=== PATIENT | male | born 1985 | race Caucasian/White ===

== ENCOUNTER 2024-05-07 11:35 | Inpatient (IN) | payer OTHER ==
[2024-05-07 12:09] VITALS: BMI 32.5
[2024-05-07] MEDS ORDERED: NALOXONE (NARCAN) HCL 4 MG/0.1 ML SPRAY NS PRN (13:01)
[2024-05-07] MEDS ORDERED: BISMUTH SUBSALICYLATE 524 MG/30 ML PO PRN (13:01)
[2024-05-07] MEDS ORDERED: ONDANSETRON *ODT* 4 MG TABLET SL PRN (13:01)
[2024-05-07] MEDS ORDERED: NALOXONE HCL 0.4 MG/ML VIAL IM PRN (13:01)
[2024-05-07] MEDS ORDERED: MAGNESIUM HYDROX 2400MG/30ML ORAL SUSPENSION 30 ML CUP PO PRN (13:01)
[2024-05-07] MEDS ORDERED: LOPERAMIDE HCL 2 MG CAPSULE PO PRN (13:01)
[2024-05-07] MEDS ORDERED: DICYCLOMINE HCL 10 MG CAPSULE PO PRN (13:01)
[2024-05-07] MEDS ORDERED: IBUPROFEN 400 MG TABLET (FP) PO PRN (13:01)
[2024-05-07] MEDS ORDERED: MAG HYDROX/AL HYDROX/SIMETH 30 ML UNIT-DOSE CUP PO PRN (13:01)
[2024-05-07] MEDS ORDERED: NICOTINE POLACRILEX 4 MG GUM BUC PRN (13:01)
[2024-05-07] MEDS ORDERED: BENZONATATE 200 MG CAPSULE PO PRN (13:01)
[2024-05-07] MEDS ORDERED: POLYETHYLENE GLYCOL (HEALTHYLAX) 3350 17 GM PACKET PO PRN (13:01)
[2024-05-07] MEDS ORDERED: METHOCARBAMOL 500 MG TABLET PO PRN (13:01)
[2024-05-07] MEDS ORDERED: ACETAMINOPHEN 325 MG TABLET (FP) PO PRN (13:01)
[2024-05-07] MEDS ORDERED: BENZOCAINE/MENTHOL (CHLORASEPTIC ) LOZENGE MM PRN (13:01)
[2024-05-07] MEDS ORDERED: guaiFENesin 600 MG TABLET.ER (FP) PO PRN (13:01)
[2024-05-07] MEDS ORDERED: IBUPROFEN 600 MG TABLET (FP) PO PRN (13:01)
[2024-05-07] MEDS ORDERED: methaDONE HCL 10 MG TABLET (FOR DETOX USE ONLY) ONE (13:41)
[2024-05-07] MEDS: methaDONE HCL 10 MG TABLET PO ONE (13:45)
[2024-05-07] MEDS: clonazePAM 0.5 MG ODT TABLETS SL PRN (17:20)
[2024-05-07] MEDS: methaDONE HCL 10 MG TABLET PO PRN (17:22)
[2024-05-07] MEDS: THIAMINE 100 MG TABLET PO SCH (22:21)
[2024-05-07] MEDS: MELATONIN 5 MG TABLETS PO SCH (22:21)
[2024-05-07] MEDS: hydrOXYzine PAMOATE 25 MG CAPSULE (FP) PO PRN (22:23)
[2024-05-08] MEDS: PRENATAL VITAMINS W/ FOLIC ACID TABLET (FP) PO SCH (10:17)
[2024-05-08] MEDS: methaDONE 40 MG, methaDONE 10 MG PO ONE (10:17)
[2024-05-08] MEDS: SERTRALINE HCL 50 MG TABLET (FP) PO SCH (11:18)
[2024-05-08 12:04] LABS: HEMATOCRIT 38.4 % (35.4-49); HEMOGLOBIN 13.2 GM/dL (11.7-16.9); MCH 30.4 pg (25.7-33.7); MCHC 34.3 g/dl (32.0-35.9); MEAN CELL VOLUME 88.6 fl (80-96); MEAN PLT VOLUME 8.3 fl (7.5-11.1); PLATELET COUNT 248 10^3/uL (134-434); RBC 4.34 M/mm3 (4.00-5.60); RDW 13.2 % (11.9-15.9); WHITE BLOOD COUNT 5.9 K/mm3 (4.0-10.0)
[2024-05-08 12:09] LABS: CHLORIDE 105 mmol/L (98-107); POTASSIUM 3.6 mmol/L (3.5-5.1); SODIUM 140 mmol/L (136-145)
[2024-05-08 12:14] LABS: CALCIUM 8.8 mg/dL (8.5-10.1)
[2024-05-08 12:15] LABS: ANION GAP 5 mmol/L (4-13); CO2 30 mmol/L (21-32)
[2024-05-08 12:16] LABS: ALBUMIN 3.6 g/dl (3.4-5.0); GLUCOSE,RANDOM 90 mg/dL (74-106)
[2024-05-08 12:18] LABS: CREATININE 0.8 mg/dL (0.55-1.3); SGOT/AST 30 U/L (15-37); SGPT/ALT 48 U/L (13-61)
[2024-05-08 12:20] LABS: BILIRUBIN,TOTAL 0.7 mg/dL (0.2-1); TOT PROT 6.7 g/dl (6.4-8.2)
[2024-05-08 12:21] LABS: ALK PHOS 82 U/L (45-117)
[2024-05-08] MEDS ORDERED: QUEtiapine FUMARATE 50 MG TABLET PO SCH (22:00)
[2024-05-08] MEDS: traZODone HCL 100 MG TABLET (FP) PO SCH (22:12)
[2024-05-09] MEDS ORDERED: cloNIDine HCL 0.1 MG TABLET PO PRN
[2024-05-09] MEDS: methaDONE 40 MG, methaDONE 20 MG PO ONE (09:29)
[2024-05-09] MEDS: diazePAM 5 MG TABLET PO PRN (15:27)
[2024-05-10] MEDS: methaDONE 40 MG, methaDONE 30 MG PO ONE (09:48)
[2024-05-11] MEDS: methaDONE HCL 40 MG DISPERSABLE TABLET PO ONE (09:55)
[2024-05-12 08:51] VITALS: BP 109/60; PULSE 66; RESP 16; TEMP 98.2
[2024-05-12] MEDS: methaDONE 80 MG, methaDONE 10 MG PO ONE (10:17)
== END 2024-05-12 10:57 | disposition home or self-care (01) | DRG 773 ==
LOC: YASAS 11:35 → Y6N 13:53
PROVIDERS: ADMIT Allergy & Immunology; ATTEND Surgery
PROC: HZ2ZZZZ Detoxification Services for Substance Abuse Treatment (ICD-10-PCS; principal; 2024-05-07)
DX: F11.23 Opioid dependence with withdrawal (principal); F13.20 Sedative, hypnotic or anxiolytic dependence, uncomplicated; F12.20 Cannabis dependence, uncomplicated; F17.210 Nicotine dependence, cigarettes, uncomplicated; F33.1 Major depressive disorder, recurrent, moderate; F43.10 Post-traumatic stress disorder, unspecified; Z88.8 Allergy status to other drugs, medicaments and biological substances
CPT/HCPCS: 36415; 80053; 80305; 80307; 85027; 86780; 93005; 93010